=== PATIENT | male | born 1970 | race Caucasian/White ===

== ENCOUNTER → 2018-04-24 08:11 | Outpatient (CLI) | payer BC, SELFPAY ==
[2018-04-24 08:47] LABS: Hematocrit 38.7 % (40-54); Hemoglobin 12.5 g/dl (13.0-16.5); Mean Corp Hgb Conc 32.3 g/gl (32-36); Mean Corpuscular Hgb 29.8 pg (27.0-32.0); Mean Corpuscular Volume 92.1 fL (80-94); Mean Platelet Vol. 9.8 fl (6.2-12.0); Platelet Count 318 K/mm3 (150-450); RBC Distribution Width CV 13.2 % (11.6-14.6); RBC Distribution Width SD 44.4 fl (35.1-43.9); White Blood Count 7.1 K/mm3 (4.4-11.0)
[2018-04-24 08:56] LABS: Scan Indicated on CBC? Y/N NO
[2018-04-24 09:16] LABS: ALB/GLOB Ratio 0.9 RATIO (0.9-2.4); AST(SGOT) 18 U/L (15-37); Alanine Aminotransfer ALT/SGPT 23 U/L (16-61); Albumin, Serum 3.7 g/dL (3.2-5.0); Alkaline Phosphatase 90 U/L (45-117); Anion Gap 7 (5-15); BUN 12 mg/dL (7-18); BUN/Creat Ratio 13.3 RATIO (10-20); Calcium,Total 8.4 mg/dL (8.5-10.1); Chloride 103 mmol/L (98-107); Cholesterol 153 mg/dL (200); EST Glomerular Filtration Rate 96 mL/min (>60); Est Glom Filt Rate - Afr Amer 116 mL/min (>60); Globulin 3.9 g/dL (2.2-4.2); Glucose 82 mg/dL (74-106); High Density Lipoprotein 42 mg/dL; Potassium 3.9 mmol/L (3.5-5.1); Protein, Total 7.6 g/dL (6.4-8.2); Sodium Level 136 mmol/L (136-145); Triglycerides 53 mg/dL; Very Low Density Lipoprotein 11 mg/dL (5-40)
== END ==
PROVIDERS: Family Provider Internal Medicine; PCP Internal Medicine; Referring Provider Internal Medicine; Visit Provider Internal Medicine
DX: Z00.00 Encounter for general adult medical examination without abnormal findings (principal)
CPT/HCPCS: 36415; 80053; 80061; 85027

== ENCOUNTER 2022-01-02 10:28 | Outpatient (CLI) | payer BC, SELFPAY ==
[2022-01-03 19:53] LABS: PSA, Total 1.5 ng/mL (0.0-4.0)
== END 2022-01-02 23:59 | disposition home or self-care (01) ==
LOC: MFPLAB 10:29
PROVIDERS: PCP Family Medicine; Referring Provider Family Medicine; Visit Provider Family Medicine
DX: R39.198 Other difficulties with micturition (principal)
CPT/HCPCS: 36415; 84153

== ENCOUNTER → 2022-01-24 | Outpatient (CLI) | payer BC, SELFPAY ==
--- NOTE | 2022-01-24 08:27 | CT_ITS ---
STUDY: LOW DOSE CT LUNG CANCER SCREENING REASON FOR EXAM: Male, 51 years old. TOBACCO USE 1 PPD X 34 YEARS RADIATION DOSAGE (If Supplied By Facility): CTDIvol = ( 2.01 ) mGy, DLP = ( 78.26 ) mGycm TECHNIQUE: No contrast was administered. Low dose technique was utilized (average mAS-38 and kVp 120). 1.25 mm axial source images with a slice interval of 1.25-mm were reconstructed in lung windows. 2.5 mm axial source images with a slice interval of 2.5-mm were reconstructed in lung windows. 5.0 mm axial source images with a slice interval of 5.0-mm were reconstructed in soft tissue windows. COMPARISON: None. NODULES: Irregular fibrotic scarring in the upper lobes worse in the right upper lobe with areas of bronchiectasis and architectural distortion. Findings most likely represent changes secondary to chronic scarring. Correlation with a PET scan is recommended for further evaluation. Emphysema: Hyperinflation. Emphysematous changes worse in the upper lobes with evidence of bullous formation. Endobronchial lesion: None Aorta: Unremarkable CORONARY ARTERIES: Coronary artery calcification is not seen. Heart: Unremarkable Pulmonary artery: Unremarkable Mediastinal nodes: Unremarkable Other chest and abdominal findings: CT/Low Dose CT Lung Screening IMPRESSION: Lung-RADS category 4A - Screening at 3 months with LDCT or evaluation with PET/CT may be used. IMPORTANT NOTES FOR USE: ACR Lung-RADS Version 1.1 Assessment Categories Release Date: 2018 Category: Coded 0-4 bases on nodule(s) with highest degree of suspicion. Negative screen is defined as categories 1 and 2; a positive screen is defined as categories 3 and 4. Category 3 and 4A nodules that are unchanged on interval CT should be coded as category 2, and individuals returned to screening in 12 months. Category 4X: Category 3 or 4 nodules with additional imaging findings that increase the suspicion of lung cancer, such as spiculation, GGN that doubles in size in 1 year, enlarged lymph notes, etc. Category Modifiers: S (significant finding unrelated to lung cancer) Electronically Signed: Shiraz Chan MD at 10:26 EDT ,
== END | disposition home or self-care (01) ==
LOC: CT 08:26
PROVIDERS: PCP Family Medicine; Referring Provider Family Medicine; Visit Provider Family Medicine
DX: F17.210 Nicotine dependence, cigarettes, uncomplicated (principal)
CPT/HCPCS: 71271

== ENCOUNTER → 2022-09-08 | Outpatient (CLI) | payer BC, SELFPAY ==
[2022-09-08 15:19] LABS: Absolute Lymphocyte Count 2.71 X10^3/uL (0.83-4.51); Basophil# 0.09 X10^3/uL; Basophil% 1.1 % (0-1); Eosinophil# 0.68 X10^3/uL; Eosinophils% 8.2 % (0-5); Hematocrit 38.2 % (40-54); Hemoglobin 12.8 g/dL (13.0-16.5); Lymphocyte # 2.71 X10^3/ul (0.83-4.51); Lymphocyte % 32.6 % (19-41); Mean Corp Hgb Conc 33.5 g/dL (32-36); Mean Corpuscular Hgb 31.1 pg (27.0-32.0); Mean Corpuscular Volume 92.9 fL (80-94); Monocyte# 0.79 X10^3/uL; Monocyte% 9.5 % (0-10); NRBC Flagged by Analyzer 0 % (0-5); Neutrophil # 4.02 X10^3/uL (2.7-7.7); Neutrophil % 48.4 % (47-70); Platelet Count 263 K/mm3 (150-450); RBC Distribution Width CV 12.7 % (11.6-14.6); RBC Distribution Width SD 42.8 fl (35.1-43.9); Red Blood Count 4.11 M/mm3 (4.6-6.2); White Blood Count 8.3 K/mm3 (4.4-11.0)
[2022-09-08 15:45] LABS: ALB/GLOB Ratio 1.1 RATIO (0.9-2.4); AST(SGOT) 20 U/L (15-37); Alanine Aminotransfer ALT/SGPT 29 U/L (16-61); Albumin, Serum 3.7 g/dL (3.2-5.0); Alkaline Phosphatase 69 U/L (45-117); Anion Gap 4 (5-15); BUN 15 mg/dL (7-18); BUN/Creat Ratio 17.9 RATIO (10-20); Calcium,Total 9.2 mg/dL (8.5-10.1); Chloride 103 mmol/L (98-107); Cholesterol 203 mg/dL (200); Creatinine, Serum 0.84 mg/dL (0.70-1.30); EST Glomerular Filtration Rate 102 mL/min (>60); Est Glom Filt Rate - Afr Amer 123 mL/min (>60); Globulin 3.5 g/dL (2.2-4.2); Glucose 96 mg/dL (74-106); High Density Lipoprotein 42 mg/dL; Potassium 3.7 mmol/L (3.5-5.1); Protein, Total 7.2 g/dL (6.4-8.2); Sodium Level 137 mmol/L (136-145); Thyroid Stim Hormone (TSH) 1.96 uIU/mL (0.358-3.74); Triglycerides 255 mg/dL; Very Low Density Lipoprotein 51 mg/dL (5-40)
== END | disposition home or self-care (01) ==
LOC: MFPLAB 11:23
PROVIDERS: PCP Family Medicine; Visit Provider Family Medicine
DX: Z13.0 Encounter for screening for diseases of the blood and blood-forming organs and certain disorders involving the immune mechanism (principal); Z13.228 Encounter for screening for other metabolic disorders; Z13.220 Encounter for screening for lipoid disorders
CPT/HCPCS: 36415; 80053; 80061; 84443; 85025

== ENCOUNTER → 2022-09-19 | Outpatient (CLI) | payer BC, SELFPAY ==
[2022-09-19 15:03] LABS: Absolute Lymphocyte Count 2.24 X10^3/uL (0.83-4.51); Absolute Neutrophil Count 4.3 X10^3/uL (2.0-7.7); Basophil# 0.08 X10^3/uL; Eosinophil# 0.37 X10^3/uL; Eosinophils% 4.8 % (0-5); Hematocrit 37.3 % (40-54); Hemoglobin 12.5 g/dL (13.0-16.5); Lymphocyte # 2.24 X10^3/ul (0.83-4.51); Lymphocyte % 29.3 % (19-41); Mean Corp Hgb Conc 33.5 g/dL (32-36); Mean Corpuscular Hgb 30.8 pg (27.0-32.0); Mean Corpuscular Volume 91.9 fL (80-94); Mean Platelet Vol. 11.1 fl (6.2-12.0); Monocyte# 0.65 X10^3/uL; Monocyte% 8.5 % (0-10); NRBC Flagged by Analyzer 0 % (0-5); Neutrophil # 4.28 X10^3/uL (2.7-7.7); Neutrophil % 56.1 % (47-70); Platelet Count 198 K/mm3 (150-450); RBC Distribution Width CV 12.3 % (11.6-14.6); RBC Distribution Width SD 41.2 fl (35.1-43.9); Red Blood Count 4.06 M/mm3 (4.6-6.2); White Blood Count 7.6 K/mm3 (4.4-11.0)
[2022-09-19 15:47] LABS: Vitamin B12 785 pg/mL (211-911)
[2022-09-19 16:18] LABS: Ferritin 75 ng/mL (26-388); Iron 58 ug/dL (65-175)
== END | disposition home or self-care (01) ==
LOC: MFPLAB 10:46
PROVIDERS: PCP Family Medicine; Visit Provider Family Medicine
DX: Z13.228 Encounter for screening for other metabolic disorders (principal)
CPT/HCPCS: 36415; 82607; 82728; 82746; 83540; 85025

== ENCOUNTER → 2022-10-14 | Outpatient (CLI) | payer BC, SELFPAY ==
--- NOTE | 2022-10-14 11:00 | PET_ITS ---
EXAMINATION: FDG PET-CT INDICATIONS: A 52-year-old male with history of pulmonary nodularity. COMPARISON EXAMINATION: None available INDEX LESION SIZE SUV INTERPRETATION Bilateral hemithorax pulmonary parenchyma 32.5-mm (largest) 5.3 (max) Fulfills quantitative criteria for viable neoplasm Distal esophagus 12.1-mm 3.3 May warrant further investigation with direct visualization secondary to the quantitative degree of uptake TECHNIQUE: Following the intravenous administration of 14.0 mCi of F-18 deoxyglucose via the right antecubital fossa, multiplanar image acquisitions of the neck, chest, abdomen and pelvis to level of mid thigh, obtained at one hour post radiopharmaceutical administration contemporaneously interpreted with the current CT of the neck, chest, abdomen and pelvis, to level of mid thigh, dated 10/14/22 via coregistration reveals: BLOOD GLUCOSE LEVEL:?? 107 mg/dl?HEIGHT:?71 inches?WEIGHT: 154 lbs. FINDINGS: Head/Neck: There is no evidence of abnormal increased glucose metabolism in the pharyngeal mucosal space, parapharyngeal space, bilateral-lateral and anterior neck, hypopharynx and distribution of the laryngeal structures. The visualized portion of the cerebral cortical-subcortical structures demonstrate symmetric and preserved glucose metabolism. CHEST: Multifocal increased glucose metabolism is identified in the left upper lung in a single nodular focus, and multiple foci in the right upper lung field, right upper lobe with a calculated maximal standard uptake value of 5.3. The largest corresponding parenchymal metabolic, morphologic abnormality is 32.5-mm. Central photopenia is identified. Enhanced FDG uptake is noted in the region of the distal esophagus, gastroesophageal junction. The calculated maximal standard uptake value is 3.3. The maximal axial diameter of the metabolic, morphologic abnormality is 12.1-mm. Pertinent chest CT findings are as follows. Emphysematous changes are defined in the bilateral upper lung zones. Bleb formation is defined in the bilateral apical lung da silva. There appears to be evidence of bilateral hemithorax bronchiectasis. Right and left axillary soft tissue densities are non-glucose avid and express fatty hilus formation. There is atherosclerotic calcification defined in the thoracic aorta without evidence of dilatation-aneurysm formation. Abdomen/Pelvis: Normal physiologic distribution of the radiopharmaceutical is apparent in the hepatic (3.0) and splenic parenchyma, both renal units, bladder and visualized intestinal tract. Pertinent abdomen and pelvis CT findings are as follows. There is atherosclerotic calcification defined in the abdominal aorta without evidence of dilatation-aneurysm formation. Abdominal-pelvic arterial calcification is observed. Right-left inguinal soft tissue densities are non-glucose avid. Skeletal: Degenerative changes are noted in the cervical, thoracic and lumbar spine without evidence of increased radiopharmaceutical concentration. There are no well-defined sclerotic-lytic changes manifest on review of the appendicular-axial skeletal structures. PET/PET/CT Tumor Base -Thigh Init IMPRESSION: 1. ABNORMAL EXAMINATION INDICATIVE OF MALIGNANT VIABLE NEOPLASM. 2. Increased radiopharmaceutical concentration multifocally apparent in the left upper lung field lobe in a single nodular focus in the right upper lung field, right upper lobe fulfill quantitative criteria for viable neoplasm. Histopathologic analysis is recommended. (Timmy et al, Annals of Internal Medicine, 138:724, 2003). 3. Facilitated uptake noted in the distal esophagus may warrant further investigation with direct visualization secondary to the quantitative degree of uptake. 4. No other quantitatively significant hypermetabolic abnormalities are noted. Electronic Signature Quirino England D.O. Accurate Quantification of SUVs for this report are calculated using the exclusive [employer]. ([place]. Patent No. [phone] B2 [phone] [place] patent [phone]). Standardization and correction of the FDG SUV metric via [employer] technology allow for vendor non-specific objective quantitative examination comparison and optimization of the sensitivity and specificity of the FDG PET-CT examination. Electronically Signed: Quirino England, at 9:31 EDT ,
== END | disposition home or self-care (01) ==
LOC: ONC 10:39
PROVIDERS: PCP Family Medicine; Referring Provider Family Medicine; Visit Provider Family Medicine
DX: R91.8 Other nonspecific abnormal finding of lung field (principal)
CPT/HCPCS: 78815; A9552

== ENCOUNTER → 2022-10-17 | Outpatient (CLI) | payer BC, SELFPAY ==
[2022-10-20 10:07] LABS: QNTFERON TB Mitogen Value > 10.00 IU/mL (.); QNTFERON TB Nil Value 0 IU/mL (.); QNTFERON TB1+ Ag Value 0.25 IU/mL (.); QNTFERON TB2+ Ag Value 0.18 IU/mL (.); QNTIFERON TB Positive Criteria Negative (Negative)
== END | disposition home or self-care (01) ==
LOC: MTLAB 14:26
PROVIDERS: PCP Family Medicine; Referring Provider Internal Medicine Pulmonary Disease; Visit Provider Internal Medicine Pulmonary Disease
DX: J98.4 Other disorders of lung (principal)
CPT/HCPCS: 36415; 86480

== ENCOUNTER 2022-10-29 12:33 | Day surgery (SDC) | payer BC, SELFPAY ==
[2022-10-29] VITALS (9 sets, daily range): BP systolic 109–132; BP diastolic 74–90; PULSE 56–84; RESP 16–20; TEMP 36.2–36.8; O2SAT 92–98; BMI 20.9
--- NOTE | 2022-10-29 | FLU_PTH ---
PATIENT: WILLIAMS SHELL LOC: EN U#:[id number] AGE/SX: 52/M ROOM: RE10/29/[address]: Dr. Omid Alegria MD : 1970 BED: DIS: 10/29/2022 SPEC #: [id number] RECD: 10/29/22 15:43 STATUS: MITCH MAZIN #: [id number] LACI: 10/29/22 00:[address]: Omid Alegria V DEPT: CYTOLOGY RECD BY: Kassidy Vaughan ENTERED: 10/30/22 08:57 SP TYPE: Fluid OTHR DR: Cathi Salazar DO Tissues: A - Bronchus of right upper lobe B - Bronchus of right upper lobe C - Bronchus of right upper lobe Procedures: Special Stain Group II Special Stain Group I Surgery Specimen Level IV AFB Stain (control) GMS Stain (control) Cytospin Fluid Cytology Other HEADER OPERATION: Bronchoscopy with biopsies, brushing (MAC) PRE-OP DIAGNOSIS: Solitary pulmonary nodule, dyspnea TISSUE SUBMITTED: A ? [place] tip with fluid, B ? [place] smears x8, C ? BAL RUL fluid DIAGNOSIS CYTOLOGY A. [place] tip with fluid (cytospin and cell block): Negative for malignant cells. B. Brushings (smears): Negative for malignant cells. C. BAL, RUL fluid (cytospin and cell block): Negative for malignant cells. See comment. SJ:katiana 10/31/2022 COMMENT C. Special stains for acid fast bacilli and fungi are negative for organisms; matched controls are appropriate. Please correlate with corresponding surgical specimen report ([id number]), right upper lobe lung biopsy with diagnosis of ?negative for malignancy.? CYTOLOGY STUDY Slides are reviewed. CYTOLOGY GROSS A - Received is 0.5 ml of red cloudy fluid labeled with the patient's name and and designated per the requisition as brush tip. Submitted for cytology preparation including cell block. B - Received are eight smears labeled with the patient's name and designated per the requisition as brush. Submitted for staining. C - Received is 35 ml of red cloudy fluid labeled with the patient's name and and designated per the requisition as BAL RUL. Submitted for cytology preparation including cell block. / katiana 10/30/2022 TC:5 CPT: 07999 x2, 48971 x2, 00802, 43837 x2
--- NOTE | 2022-10-29 | LUNG_PTH ---
PATIENT: WILLIAMS SHELL LOC: EN U#:[id number] AGE/SX: 52/M ROOM: RE10/29/[address]: Dr. Omid Alegria MD : 1970 BED: DIS: 10/29/2022 SPEC #: [id number] RECD: 10/29/22 15:43 STATUS: MITCH MAZIN #: [id number] LACI: 10/29/22 00:[address]: Omid Alegria V DEPT: SURGICAL PATHOLOGY RECD BY: Kassidy Vaughan ENTERED: 10/30/22 09:01 SP TYPE: LUNG BX OTHR DR: Cathi Salazar DO Tissues: Lung, NOS Procedures: Elastin Stain (control) Trichrome (control) Special Stain Group II Special Stain Group I Surgery Specimen Level IV AFB Stain (control) GMS Stain (control) Retic (control) HEADER OPERATION: Bronchoscopy with biopsies, brushing (MAC) PRE-OP DIAGNOSIS: Solitary pulmonary nodule, dyspnea TISSUE SUBMITTED: Right upper lobe lung biopsy MICROSCOPIC DIAGNOSIS Right upper lobe lung, biopsy: Lung parenchymal tissue and bronchial tissue with interstitial fibrosis, chronic inflammation and a focal area suggestive of fibrous nodule with chronic inflammation and necrotizing granulomatous inflammation. Negative for malignancy. See comment. BOBO:katiana 10/31/2022 COMMENT Special stains for acid fast bacilli and fungi are negative for organisms; matched controls are appropriate. Reticulin, elastic and trichrome stains with appropriate matched controls are also used in the evaluation of the specimen. Correlation with clinical, radiologic findings and appropriate follow up are necessary. Case has been reviewed in consultation with Dr. Mckeon who concurs with the above diagnosis. IDC:AM MICROSCOPIC DESCRIPTION Slides are reviewed. GROSS DESCRIPTION Received in fixative is one container labeled with the patient's name and designated right upper lobe biopsy. The specimen consists of multiple fragments of king hemorrhagic soft tissue that in aggregate measure 2.0 x 0.3 x 0.1 cm. The specimen is totally submitted in one cassette. / BOBO:katiana 10/30/2022 TC:3 CPT: 91850, 08818 x3, 08418 x2
[2022-10-29] MEDS: Lactated Ringers 1,000 ML 15 ML IV (13:03)
[2022-10-29] MEDS: Phenylephrine 0.25% 15 ML NASAL.SRY NASAL (14:38)
[2022-10-29] MEDS: 0.9% Normal Saline (Pres. free 10 ML Vial (15:05)
[2022-10-29] MEDS: Epinephrine (1 mg/ml) 1 MG/ML VIAL (15:05)
[2022-10-29] MEDS: Lidocaine Jelly 2% 20 ML Syringe (URO-JET) 1 APPLIC (15:07)
[2022-10-29] MEDS: Lidocaine 2% (5ml sdv) 5 ML VIAL.MPF (15:10)
--- NOTE | 2022-10-29 15:24 | OP.BRONCH_ITS ---
Patient Name: Haider Agudelo Procedure Date: 10/29/2022 1:50 PM Date of : 1970 Age: 52 Procedure: Bronchoscopy Indications: Right upper lobe nodule Providers: Omid Alegria MD Medicines: Lidocaine applied to nares and subglottic space Complications: No immediate complications Procedure: Pre-Anesthesia Assessment: - A History and Physical has been performed. The patient's medications, allergies and sensitivities have been reviewed. - Pre-procedure physical examination revealed no contraindications to sedation. After I obtained informed consent, the scope was passed under direct vision. Throughout the procedure, the patient's blood pressure, pulse, and oxygen saturations were monitored continuously. The bronchoscope was introduced through the right nostril and advanced to the tracheobronchial tree of both lungs. The procedure was accomplished without difficulty. The patient tolerated the procedure well. Moderate Sedation: An independent trained observer was present and continuously monitored the patient. Findings: Bronchoalveolar lavage was performed in the RUL apical segment (B1) of the lung. 140 mL of fluid were instilled. 30 mL were returned. The return was bloody. There were no mucoid plugs in the return fluid. Transbronchial biopsies of a lesion were performed in the apical segment of the right upper lobe using forceps and sent for cell count, bacterial culture, viral smears & culture, and fungal & AFB analysis and cytology. The procedure was guided by fluoroscopy. Transbronchial biopsy technique was selected because the sampling site was not visible endoscopically. Seven biopsy passes were performed. Seven biopsy samples were obtained. Fluoroscopy guided transbronchial brushings of a lesion were obtained in the apical segment of the right upper lobe with a cytology brush and sent for cell count, bacterial culture, viral smears & culture, and fungal & AFB analysis and cytology. Two samples were obtained. Impression: - Right upper lobe nodule - Bronchoalveolar lavage was performed. - Transbronchial lung biopsies were performed. - Transbronchial brushings were obtained. Recommendation: - Await biopsy results. - Await test results. Procedure Code(s): --- Professional --- 87577, Bronchoscopy, rigid or flexible, including fluoroscopic guidance, when performed; with transbronchial lung biopsy(s), single lobe 32007, Bronchoscopy, rigid or flexible, including fluoroscopic guidance, when performed; with bronchial alveolar lavage 14857, Bronchoscopy, rigid or flexible, including fluoroscopic guidance, when performed; with brushing or protected brushings Diagnosis Code(s): --- Professional --- R91.1, Solitary pulmonary nodule CPT copyright 2017 [employer]. All rights reserved. The codes documented in this report are preliminary and upon outside machinist helper review may be revised to meet current compliance requirements. MD Omid Stacy MD 10/29/2022 3:23:56 PM This report has been signed electronically. Number of Addenda: 0 Note Initiated On: 10/29/2022 1:50 PM
[2022-10-29 15:53] LABS: Cytology, Body Fluid / CSF SEE PATHOLOGY REPORT
[2022-10-29 15:55] LABS: Cytology, Body Fluid / CSF SEE PATHOLOGY REPORT
--- NOTE | 2022-10-29 16:05 | RAD_ITS ---
STUDY: X-RAY CHEST REASON FOR EXAM: Male, 52 years old. POST OP TECHNIQUE: Single AP portable view of the chest. COMPARISON: CT scan 01/24/2022, PET scan 10/14/2022. FINDINGS: There is hyperinflation of the lungs consistent with chronic obstructive lung disease (COPD). There is ill-defined increased soft tissue density of the right apex consistent with abnormality seen on CT scan and PET scan. Neoplasm is a possibility. Lungs otherwise clear. No pneumothorax. No effusions. Normal size heart. Normal mediastinum and saadia. Normal visualized pulmonary arteries. Normal visualized aortic arch and descending thoracic aorta. Normal visualized thoracic spine. Normal visualized ribs, clavicles, and shoulders. There is no demonstrated abnormality of the visualized soft tissue structures of the upper abdomen. RAD/Chest 1 View IMPRESSION: There is ill-defined increased soft tissue density of the right apex consistent with abnormality seen on CT scan and PET scan. Lungs otherwise clear. No pneumothorax. Electronically Signed: Luke Hammer MD at 16:31 EDT ,
--- NOTE | 2022-10-29 16:40 | SUR.PHASEII ---
Dr. Alegria looked at pt's chest xray when we were on the phone, okay to discharge pt.
== END 2022-10-29 16:43 | disposition home or self-care (01) ==
LOC: EN 12:34 → AC 12:35
PROVIDERS: PCP Family Medicine; Referring Provider Internal Medicine Pulmonary Disease; Visit Provider Internal Medicine Pulmonary Disease
PROC: 0BJ08ZZ Inspection of Tracheobronchial Tree, Via Natural or Artificial Opening Endoscopic (ICD-10-PCS; CPT 31622; principal; 2022-10-29 13:30)
DX: J84.89 Other specified interstitial pulmonary diseases (principal); N40.0 Benign prostatic hyperplasia without lower urinary tract symptoms; Z79.899 Other long term (current) drug therapy; F17.210 Nicotine dependence, cigarettes, uncomplicated; F12.90 Cannabis use, unspecified, uncomplicated; F41.9 Anxiety disorder, unspecified; R06.00 Dyspnea, unspecified
CPT/HCPCS: 31624; 31628; 31623; 71045; 76000; 87015; 87101; 87116; 87206; 88108; 88161; 88305; 88312; 88313; J7120; J2405; J3490

== ENCOUNTER → 2023-01-19 | Outpatient (CLI) | payer BC, SELFPAY ==
[2023-01-19 12:16] LABS: Erythrocyte Sedimentation Rate 15 mm/hr (0-20)
[2023-01-19 12:22] LABS: Absolute Lymphocyte Count 2.87 X10^3/uL (0.83-4.51); Absolute Neutrophil Count 2.3 X10^3/uL (2.0-7.7); Basophil# 0.09 X10^3/uL; Basophil% 1.3 % (0-1); Eosinophil# 0.74 X10^3/uL; Eosinophils% 10.9 % (0-5); Hematocrit 39.5 % (40-54); Hemoglobin 13.1 g/dL (13.0-16.5); Lymphocyte # 2.87 X10^3/ul (0.83-4.51); Lymphocyte % 42.3 % (19-41); Mean Corp Hgb Conc 33.2 g/dL (32-36); Mean Corpuscular Hgb 30.4 pg (27.0-32.0); Mean Corpuscular Volume 91.6 fL (80-94); Mean Platelet Vol. 11.4 fl (6.2-12.0); Monocyte# 0.76 X10^3/uL; Monocyte% 11.2 % (0-10); NRBC Flagged by Analyzer 0 % (0-5); Neutrophil # 2.32 X10^3/uL (2.7-7.7); Neutrophil % 34.2 % (47-70); Platelet Count 260 K/mm3 (150-450); RBC Distribution Width CV 12.2 % (11.6-14.6); RBC Distribution Width SD 41.4 fl (35.1-43.9); Red Blood Count 4.31 M/mm3 (4.6-6.2); White Blood Count 6.8 K/mm3 (4.4-11.0)
== END | disposition home or self-care (01) ==
PROVIDERS: PCP Family Medicine; Referring Provider Internal Medicine Pulmonary Disease; Visit Provider Internal Medicine Pulmonary Disease
DX: R05.9 Cough, unspecified (principal); R06.02 Shortness of breath; D64.9 Anemia, unspecified
CPT/HCPCS: 36415; 85025; 85652; 86141

== ENCOUNTER → 2023-02-07 | Outpatient (CLI) | payer BC, SELFPAY ==
--- NOTE | 2023-02-07 07:33 | CT_ITS ---
INDICATION: COUGH EXAMINATION: CT CHEST WITHOUT CONTRAST - CT Chest W/O Contrast Injection TECHNIQUE: Helically acquired images were obtained of the chest. A radiation dose optimization technique was used for this scan. IV Contrast dosage and agent: None. RADIATION DOSAGE (If Supplied By Facility): CTDIvol = ( 6.58 ) mGy, DLP = ( 279.39 ) mGycm COMPARISON: January 24, 2022 FINDINGS: LUNGS, PLEURA AND LARGE AIRWAYS: Severe COPD with extensive bullous disease and subpleural bleb formation in the upper lobes. Parenchymal density with ill-defined margins left upper lobe 1.43 cm. Confluent opacity right upper lobe 6.1 x 2.53 cm. Spiculated density right middle lobe 1.85 cm. THYROID: No thyroid lesions. HEART AND PERICARDIUM: Heart size is normal. No pericardial effusion. CORONARY ARTERIES: Coronary artery calcification VESSELS: Thoracic aorta is not dilated. MEDIASTINUM AND JENAE: No mediastinal or hilar adenopathy. Esophagus is unremarkable. No hiatal hernia. UPPER ABDOMEN: No acute pathology. BONES: No suspicious lytic or blastic abnormality. Stable exam. CT/Chest without Contrast IMPRESSION: Severe COPD. Parenchymal density left upper lobe 1.43 cm. Right upper lobe confluent density 6.1 x 2.5 cm. Spiculated right middle lobe density 1.85 cm. Lung RADS category 4 A. Screening in 3 months with low dose CT or evaluation with PET/CT. Electronically Signed: Ronnie Mera MD at 10:56 EDT ,
== END | disposition home or self-care (01) ==
LOC: CT 07:27
PROVIDERS: PCP Family Medicine; Referring Provider Internal Medicine Pulmonary Disease; Visit Provider Internal Medicine Pulmonary Disease
DX: R05.9 Cough, unspecified (principal); R06.02 Shortness of breath
CPT/HCPCS: 71250

== ENCOUNTER → 2023-05-05 | Outpatient (CLI) | payer BC, SELFPAY ==
[2023-05-05 12:14] LABS: Hemoglobin 12.8 g/dL (13.0-16.5); Mean Corp Hgb Conc 33.7 g/dL (32-36); Mean Corpuscular Hgb 31.5 pg (27.0-32.0); Mean Corpuscular Volume 93.6 fL (80-94); Platelet Count 195 K/mm3 (150-450); RBC Distribution Width CV 12.5 % (11.6-14.6); RBC Distribution Width SD 43.1 fl (35.1-43.9); Red Blood Count 4.06 M/mm3 (4.6-6.2); White Blood Count 5.1 K/mm3 (4.4-11.0)
[2023-05-05 12:17] LABS: AST(SGOT) 17 U/L (15-37); Alanine Aminotransfer ALT/SGPT 26 U/L (16-61); Albumin, Serum 3.6 g/dL (3.2-5.0); Alkaline Phosphatase 52 U/L (45-117); Bilirubin, Direct 0.06 mg/dL (0.00-0.30); Globulin 3.3 g/dL (2.2-4.2); Protein, Total 6.9 g/dL (6.4-8.2)
== END | disposition home or self-care (01) ==
PROVIDERS: PCP Family Medicine; Referring Provider Internal Medicine Pulmonary Disease; Visit Provider Internal Medicine Pulmonary Disease
DX: R91.1 Solitary pulmonary nodule (principal); Z79.899 Other long term (current) drug therapy
CPT/HCPCS: 36415; 80076; 85027

== ENCOUNTER → 2023-08-12 | Outpatient (CLI) | payer BC, SELFPAY ==
[2023-08-12 12:27] LABS: Hematocrit 36.5 % (40-54); Hemoglobin 12.5 g/dL (13.0-16.5); Mean Corp Hgb Conc 34.2 g/dL (32-36); Mean Corpuscular Hgb 31.5 pg (27.0-32.0); Mean Corpuscular Volume 91.9 fL (80-94); Mean Platelet Vol. 11.7 fl (6.2-12.0); Platelet Count 153 K/mm3 (150-450); RBC Distribution Width CV 12.3 % (11.6-14.6); RBC Distribution Width SD 41.2 fl (35.1-43.9); Red Blood Count 3.97 M/mm3 (4.6-6.2); White Blood Count 5.2 K/mm3 (4.4-11.0)
[2023-08-12 12:55] LABS: AST(SGOT) 16 U/L (15-37); Alanine Aminotransfer ALT/SGPT 19 U/L (16-61); Albumin, Serum 3.9 g/dL (3.2-5.0); Alkaline Phosphatase 60 U/L (45-117); Bilirubin, Direct 0.12 mg/dL (0.00-0.30); Globulin 2.9 g/dL (2.2-4.2); Protein, Total 6.8 g/dL (6.4-8.2)
== END | disposition home or self-care (01) ==
PROVIDERS: PCP Family Medicine; Referring Provider Internal Medicine Pulmonary Disease; Visit Provider Internal Medicine Pulmonary Disease
DX: R91.1 Solitary pulmonary nodule (principal); Z79.899 Other long term (current) drug therapy
CPT/HCPCS: 36415; 80076; 85027

== ENCOUNTER → 2023-09-11 | Outpatient (CLI) | payer BC, SELFPAY ==
--- NOTE | 2023-09-11 18:51 | CT_ITS ---
INDICATION: Chest pain/pressure, shortness of breath EXAMINATION: CT CHEST WITHOUT CONTRAST - CT Chest W/O Contrast Injection TECHNIQUE: Helically acquired images were obtained of the chest. A radiation dose optimization technique was used for this scan. IV Contrast dosage and agent: None. COMPARISON: There is a listed previous study from 02/07/2023 but it is not available for comparison. FINDINGS: LUNGS, PLEURA AND LARGE AIRWAYS: Lung windows show severe underlying emphysema with nonspecific pleural thickening in both apices. These appear to be essentially unchanged from the previous report with the left side measuring 1.2 cm on current exam while the right upper lobe confluence measures 4.1 x 1.2 cm. There is a pleural-based triangular noncalcified nodule in the right middle lobe on axial image 77 measuring 0.8 cm. No suspicious mass or nodule in the right lower lobe or elsewhere in the left lung field. No organized infiltrate or effusion. THYROID: No thyroid lesions. HEART AND PERICARDIUM: Heart size is normal. No pericardial effusion. CORONARY ARTERIES: Coronary artery calcification is not seen. VESSELS: Thoracic aorta is not dilated. MEDIASTINUM AND JENAE: No suspicious axillary mediastinal or hilar adenopathy. Esophagus is unremarkable. No hiatal hernia. UPPER ABDOMEN: No acute pathology. BONES: No suspicious lytic or blastic abnormality. CT/Chest without Contrast IMPRESSION: Severe underlying emphysema with likely stable fibrotic scarring in both apices and a pleural-based 8 mm nodule in the right middle lobe. The previous study is not available for comparison but has been performed, when/if it becomes available, an addendum will be performed No organized infiltrate or effusion No suspicious adenopathy Electronically Signed: Colin Yancey MD at 11:58 EDT ,
== END | disposition home or self-care (01) ==
PROVIDERS: PCP Family Medicine; Referring Provider Internal Medicine Pulmonary Disease; Visit Provider Internal Medicine Pulmonary Disease
DX: R91.1 Solitary pulmonary nodule (principal); R06.02 Shortness of breath
CPT/HCPCS: 71250

== ENCOUNTER → 2023-11-09 | Outpatient (CLI) | payer BC, SELFPAY ==
[2023-11-09 15:03] LABS: Hematocrit 38.5 % (40-54); Hemoglobin 12.8 g/dL (13.0-16.5); Mean Corp Hgb Conc 33.2 g/dL (32-36); Mean Corpuscular Hgb 30.7 pg (27.0-32.0); Mean Corpuscular Volume 92.3 fL (80-94); Mean Platelet Vol. 11.5 fl (6.2-12.0); Platelet Count 207 K/mm3 (150-450); RBC Distribution Width CV 12.2 % (11.6-14.6); RBC Distribution Width SD 41.7 fl (35.1-43.9); Red Blood Count 4.17 M/mm3 (4.6-6.2); White Blood Count 6.2 K/mm3 (4.4-11.0)
[2023-11-09 15:43] LABS: AST(SGOT) 17 U/L (15-37); Alanine Aminotransfer ALT/SGPT 23 U/L (16-61); Albumin, Serum 3.5 g/dL (3.2-5.0); Alkaline Phosphatase 60 U/L (45-117); Bilirubin, Direct 0.06 mg/dL (0.00-0.30); Protein, Total 6.5 g/dL (6.4-8.2)
== END | disposition home or self-care (01) ==
PROVIDERS: PCP Family Medicine; Referring Provider Internal Medicine Pulmonary Disease; Visit Provider Internal Medicine Pulmonary Disease
DX: R91.1 Solitary pulmonary nodule (principal); Z79.899 Other long term (current) drug therapy
CPT/HCPCS: 36415; 80076; 85027

== ENCOUNTER → 2024-04-08 | Outpatient (CLI) | payer BC, SELFPAY ==
[2024-04-08 10:27] LABS: Absolute Lymphocyte Count 2.14 X10^3/uL (0.83-4.51); Absolute Neutrophil Count 3.1 X10^3/uL (2.0-7.7); Basophil# 0.08 X10^3/uL; Basophil% 1.2 % (0-1); Eosinophil# 0.49 X10^3/uL; Eosinophils% 7.6 % (0-5); Hematocrit 42.4 % (40-54); Hemoglobin 14.1 g/dL (13.0-16.5); Lymphocyte # 2.14 X10^3/ul (0.83-4.51); Lymphocyte % 33.3 % (19-41); Mean Corp Hgb Conc 33.3 g/dL (32-36); Mean Corpuscular Hgb 30.5 pg (27.0-32.0); Mean Corpuscular Volume 91.8 fL (80-94); Monocyte# 0.63 X10^3/uL; Monocyte% 9.8 % (0-10); NRBC Flagged by Analyzer 0 % (0-5); Neutrophil # 3.07 X10^3/uL (2.7-7.7); Neutrophil % 47.9 % (47-70); Platelet Count 301 K/mm3 (150-450); RBC Distribution Width CV 12.1 % (11.6-14.6); RBC Distribution Width SD 40.8 fl (35.1-43.9); Red Blood Count 4.62 M/mm3 (4.6-6.2); White Blood Count 6.4 K/mm3 (4.4-11.0)
[2024-04-08 11:10] LABS: ALB/GLOB Ratio 1.2 RATIO (0.9-2.4); AST(SGOT) 13 U/L (15-37); Alanine Aminotransfer ALT/SGPT 20 U/L (16-61); Alkaline Phosphatase 60 U/L (45-117); Anion Gap 2 (5-15); BUN 13 mg/dL (7-18); BUN/Creat Ratio 12.6 RATIO (10-20); Calcium,Total 9.4 mg/dL (8.5-10.1); Chloride 106 mmol/L (98-107); Cholesterol 213 mg/dL (200); Creatinine, Serum 1.03 mg/dL (0.70-1.30); EST Glomerular Filtration Rate 80 mL/min (>60); Est Glom Filt Rate - Afr Amer 97 mL/min (>60); Globulin 3.2 g/dL (2.2-4.2); Glucose 93 mg/dL (74-106); High Density Lipoprotein 53 mg/dL; PSA,Total - Annual Screen 1.56 ng/mL (0.00-4.00); Potassium 4.1 mmol/L (3.5-5.1); Protein, Total 7.2 g/dL (6.4-8.2); Sodium Level 138 mmol/L (136-145); Triglycerides 100 mg/dL; Very Low Density Lipoprotein 20 mg/dL (5-40)
== END | disposition home or self-care (01) ==
PROVIDERS: PCP Family Medicine; Referring Provider Family Medicine; Visit Provider Family Medicine
DX: E78.00 Pure hypercholesterolemia, unspecified (principal); D64.9 Anemia, unspecified; Z13.1 Encounter for screening for diabetes mellitus; Z12.5 Encounter for screening for malignant neoplasm of prostate; Z12.11 Encounter for screening for malignant neoplasm of colon
CPT/HCPCS: 36415; 80053; 80061; 84153; 85025; G0103

== ENCOUNTER → 2024-09-12 | Outpatient (CLI) | payer BC, SELFPAY ==
--- NOTE | 2024-09-12 07:21 | CT_ITS ---
EXAM: CT Chest Without Intravenous Contrast CLINICAL INDICATION: PULM NODULE TECHNIQUE: Axial computed tomography images of the chest without intravenous contrast. This CT exam was performed using one or more of the following dose reduction techniques: automated exposure control, adjustment of the mA and/or kV according to patient size, and/or use of iterative reconstruction technique. COMPARISON: No relevant prior studies available. FINDINGS: LUNGS AND PLEURAL SPACES: Lung emphysema/COPD. Bilateral apical scarring. No consolidation. No pneumothorax. No significant effusion. HEART: Unremarkable. No cardiomegaly. No significant pericardial effusion. No significant coronary artery calcifications. MEDIASTINUM: Scattered mediastinal lymph nodes some of which are upper limits of normal in size and are most likely reactive lymph nodes. Small esophageal hiatal hernia. BONES/JOINTS: Unremarkable. No acute fracture. No dislocation. SOFT TISSUES: Unremarkable. VASCULATURE: Scattered calcified atherosclerotic disease of aorta. No thoracic aortic aneurysm. LYMPH NODES: See above. CT/Chest without Contrast IMPRESSION: 1. Scattered mediastinal lymph nodes some of which are upper limits of normal in size and are most likely reactive lymph nodes. 2. Small esophageal hiatal hernia. 3. COPD/lung emphysema with bilateral apical scarring, stone which. 4. Continue low-dose CT scan of the chest in 12 months is recommended. Reading [facility]
== END | disposition home or self-care (01) ==
PROVIDERS: PCP Family Medicine; Referring Provider Internal Medicine Pulmonary Disease; Visit Provider Internal Medicine Pulmonary Disease
DX: R91.1 Solitary pulmonary nodule (principal)
CPT/HCPCS: 71250